=== PATIENT | male | born 1945 | race African-American/Black ===

== ENCOUNTER 2017-03-31 08:37 | Inpatient (IN) | payer OTHER ==
[~2017-03-31] VITALS: Ht 188 cm; Wt 75.7 kg
[~2017-03-31 08:37] MED LIST: ACET-2902 PO; CARB200T6 PO; CEPH500 PO; DOXY150T PO; FLUP10 PO; INSLAN SQ; INSNOV SQ; IPRA4AER IH; IPRAHFA IH; OMEP20 PO; QUET25TA PO; TAMS0.4C32 PO; ZIPR60CA2 PO
[2017-03-31] MEDS ORDERED: ATOR10TA84 PO (08:49)
[2017-03-31] MEDS ORDERED: VITAD1000 PO (08:49)
[2017-03-31] MEDS ORDERED: CLOP75 PO (08:49)
[2017-03-31] MEDS ORDERED: ACETAMINOPHEN 1000 MG/ISO-OSM 100 ML IV ONE (09:00)
[2017-03-31] MEDS ORDERED: SODIUM CHLORIDE 0.9% 1,000 ML IV ONE ×3 (09:00→10:30)
[2017-03-31 09:07] LABS: ABG A-A DIFF O2 604.9 mmHg (10-20.0); ABG BASE EXCESS -6.6 mmol/L (-2.0-3.0); ABG HCO3 20.2 mmol/L (22.0-26.0); ABG OXYHEMOGLOBIN 93.1 % (94.0-100.0); ABG PCO2 28 mmHg (35-45); ABG PH 7.423 (7.35-7.450); TEMPERATURE, FAHRENHEIT, BG 98.6 FAHREN (96.0-98.6)
[2017-03-31 09:08] LABS: ALLEN TEST, BLOOD GAS Positive
[2017-03-31 09:17] LABS: BASOPHILS % (AUTO) 0.2 % (0.0-2.0); EOSINOPHILS % (AUTO) 0 % (1.0-6.0); HEMATOCRIT 38.6 % (41-53); HEMOGLOBIN 12.6 g/dL (13.5-17.5); LYMPHOCYTES # (AUTO) 0.6 K/uL (1.0-4.8); LYMPHOCYTES % (AUTO) 4.2 % (22.0-44.0); MEAN CORPUSCULAR HEMOGLOBIN 25.6 pg (26.0-34.0); MEAN CORPUSCULAR HGB CONC 32.6 G/dL (31.0-37.0); MEAN CORPUSCULAR VOLUME 79 fL (80-100); MONOCYTES # (AUTO) 0.5 K/uL (0.1-1.0); MONOCYTES % (AUTO) 3.2 % (2.0-9.0); PLATELET COUNT (AUTO) 296 K/uL (150-450); RED BLOOD CELL COUNT(AUTO) 4.91 MIL/uL (4.50-5.90); RED CELL DISTRIBUTION WIDTH 16.2 % (11.5-14.5)
[2017-03-31 09:18] LABS: NEUTROPHILS % (AUTO) 92.4 % (40.0-70.0); WHITE BLOOD COUNT (AUTO) 22.8 K/uL (4.5-11.0)
[2017-03-31 09:19] LABS: APPEARANCE,URINE CLOUDY (CLEAR); GLUCOSE, URINE (UA) NEGATIVE (NEGATIVE); KETONES,URINE TRACE mg/dL (NEGATIVE); LEUKOCYTE ESTERASE ,URINE LARGE (NEGATIVE); OCCULT BLOOD,URINE LARGE (NEGATIVE); PH,URINE 6.5 (5.0-8.0); PROTEIN,URINE SEE CONFIRM (NEGATIVE)
[2017-03-31 09:24] LABS: ADD UA MICROSCOPIC YES
[2017-03-31 09:26] LABS: SULFOSALICYLIC ACID,URINE 3+ (Negative)
[2017-03-31 09:27] LABS: WBC,URINE 26-50 /HPF (0-5)
[2017-03-31] MEDS ORDERED: VANCOMYCIN HCL 1 GM/D5% WATER 200 ML IV ONE (09:30)
[2017-03-31] MEDS ORDERED: PIPERACILLIN/TAZO 3.375 GM/D5W 50 ML IV ONE (09:30)
[2017-03-31] MEDS ORDERED: LEVOFLOXACIN 500 MG/D5% WATER 100 ML IV ONE (09:30)
[2017-03-31 09:40] LABS: CALCIUM, TOTAL 9.5 mg/dL (8.8-10.5); CREATININE 2.1 mg/dL (0.60-1.30); POTASSIUM 4.3 mmol/L (3.5-5.1)
[2017-03-31 09:47] LABS: ALBUMIN 2.4 g/dL (3.4-5.0); BILIRUBIN,TOTAL 0.8 mg/dL (0.1-1.0); RBC MORPHOLOGY COMMENT NORMAL RBC MORPH; TOTAL PROTEIN, SERUM 8.2 g/dL (6.4-8.2)
[2017-03-31 10:17] LABS: PROCALCITONIN (PCT) 9.28 ng/mL (<0.50)
[2017-03-31 10:25] LABS: LACTIC ACID 2.5 mmol/L (0.4-2.0)
[2017-03-31] MEDS ORDERED: IODIXANOL 320 MG/ML 150 ML VIAL ONE (10:25)
[2017-03-31] MEDS ORDERED: SODIUM CHLORIDE 0.9% 100 ML ONE (10:25)
[2017-03-31] MEDS ORDERED: ONDANSETRON HCL 4 MG/2 ML VIAL IVP PRN (10:30)
[2017-03-31] MEDS ORDERED: IPRATROPIUM BROMIDE 0.5 MG/2.5 ML NEB SOLUTION NEB PRN ×2 (11:45→12:00)
[2017-03-31] MEDS ORDERED: MAGNESIUM HYDROXIDE SUSPENSION 30 ML UDCUP PO PRN (11:45)
[2017-03-31] MEDS ORDERED: BISACODYL 10 MG RECTAL RECTAL SUPPOSITORY PR PRN (11:45)
[2017-03-31] MEDS ORDERED: ALBUTEROL SULFATE 2.5 MG/0.5 ML NEB SOLUTION NEB PRN ×2 (11:45→12:00)
[2017-03-31 11:47] LABS: REFLEX LACTIC ACID? YES YES
[2017-03-31] MEDS ORDERED: *CLINICAL-LEVOFLOXACIN IVPB DOSING CLINICAL ONE ×2 (12:00)
[2017-03-31] MEDS ORDERED: SODIUM CHLORIDE 0.9% 1,000 ML IV SCH (12:00)
[2017-03-31] MEDS ORDERED: DEXTROSE 50%-WATER 25 GM/50 ML SYRINGE IVP PRN (12:00)
[2017-03-31] MEDS ORDERED: PENTETATE DTPA TC99M/MCL ISOTOPE 1 EA INJ INJ ONE (12:35)
[2017-03-31] MEDS ORDERED: MAA ALBUMIN AGGREGATED TC99M/UD<10MCL ISOTOPE 1 EA INJ INJ ONE (12:50)
[2017-03-31] MEDS ORDERED: LEVOFLOXACIN 250 MG/D5% WATER 50 ML IV ONE (13:00)
[2017-03-31 13:30] VITALS: BP 104/55
[2017-03-31] MEDS: SODIUM CHLORIDE 0.45% 1,000 ML IV SCH ×2 (14:00→21:53)
[2017-03-31 16:00] VITALS: BP 107/57
[2017-03-31] MEDS ORDERED: HEPARIN SODIUM,PORCINE 5,000 UNITS/ML VIAL SQ SCH (16:00)
[2017-03-31] MEDS: INSULIN ASPART 100 UNITS/ML SQ PRN ×2 (17:48→23:11)
[2017-03-31 20:00] VITALS: BP 117/62
[2017-03-31] MEDS: DOCUSATE SODIUM 100 MG CAPSULE PO SCH (21:00)
[2017-03-31] MEDS: ATORVASTATIN CALCIUM 20 MG TABLET PO SCH (21:50)
[2017-03-31] MEDS: HEPARIN SODIUM,PORCINE 5,000 UNITS/ML VIAL SQ SCH (21:50)
[2017-04-01] VITALS: BP 126/67
[2017-04-01 04:00] VITALS: BP 114/68
[2017-04-01 05:02] LABS: GLUCOSE COMMENT 1 Received Meds; GLUCOSE,POINT OF CARE 300 MG/DL (70-110)
[2017-04-01 05:06] LABS: GLUCOSE COMMENT 1 Received Meds; GLUCOSE,POINT OF CARE 253 MG/DL (70-110)
[2017-04-01] MEDS: INSULIN ASPART 100 UNITS/ML SQ PRN ×3 (05:15→20:01)
[2017-04-01 05:18] LABS: ANION GAP 14 mmol/L (8-16); CALCIUM, TOTAL 9.4 mg/dL (8.8-10.5); CARBON DIOXIDE 24 mmol/L (22-29); CHLORIDE 122 mmol/L (98-107); CREATININE 1.05 mg/dL (0.60-1.30); GLOMERULAR FILTR. RATE CALC > 60 mL/min (>60); SODIUM SERUM 160 mmol/L (136-145); UREA NITROGEN, BLOOD 51 mg/dL (7-18)
[2017-04-01 05:21] LABS: POTASSIUM 2.9 mmol/L (3.5-5.1)
[2017-04-01] MEDS ORDERED: SODIUM CHLORIDE 0.9% 250 ML IV ONE (05:47)
[2017-04-01 05:50] LABS: EOSINOPHILS % (AUTO) 0 % (1.0-6.0); HEMATOCRIT 35.3 % (41-53); HEMOGLOBIN 11.4 g/dL (13.5-17.5); LYMPHOCYTES % (AUTO) 6.6 % (22.0-44.0); MEAN CORPUSCULAR HEMOGLOBIN 25.6 pg (26.0-34.0); MEAN CORPUSCULAR HGB CONC 32.3 G/dL (31.0-37.0); MEAN CORPUSCULAR VOLUME 79 fL (80-100); MONOCYTES # (AUTO) 0.3 K/uL (0.1-1.0); MONOCYTES % (AUTO) 1.9 % (2.0-9.0); NEUTROPHILS # (AUTO) 13.9 K/uL (1.8-7.7); PLATELET COUNT (AUTO) 248 K/uL (150-450); RED BLOOD CELL COUNT(AUTO) 4.44 MIL/uL (4.50-5.90); RED CELL DISTRIBUTION WIDTH 16.1 % (11.5-14.5); WHITE BLOOD COUNT (AUTO) 15.2 K/uL (4.5-11.0)
[2017-04-01] MEDS ORDERED: POTASSIUM CHL 10 MEQ/WATER 200 ML IV ONE (05:56)
[2017-04-01] MEDS: POTASSIUM CHL 10 MEQ/WATER 50 ML IV SCH ×4 (05:56→10:16)
[2017-04-01 06:34] LABS: NEUTROPHILS % (AUTO) 91.5 % (40.0-70.0)
[2017-04-01] MEDS: DOCUSATE SODIUM 100 MG CAPSULE PO SCH ×2 (07:38→19:52)
[2017-04-01] MEDS: HEPARIN SODIUM,PORCINE 5,000 UNITS/ML VIAL SQ SCH ×2 (07:56→20:00)
[2017-04-01] MEDS: PANTOPRAZOLE SODIUM 40 MG/VIAL IVP SCH (07:56)
[2017-04-01] MEDS: CLOPIDOGREL BISULFATE 75 MG TABLET PO SCH (07:57)
[2017-04-01] MEDS: ACETAMINOPHEN 325 MG TABLET PO PRN ×2 (07:57→18:03)
[2017-04-01] MEDS: SODIUM CHLORIDE 0.45% 1,000 ML IV SCH (07:58)
[2017-04-01 08:00] VITALS: BP 119/54
[2017-04-01] MEDS ORDERED: VANCOMYCIN HCL 1 GM/D5% WATER 200 ML IV SCH (08:00)
[2017-04-01] MEDS ORDERED: ALBUTEROL SULFATE 2.5 MG/0.5 ML NEB SOLUTION NEB PRN (08:45)
[2017-04-01 10:41] LABS: ABG HCO3 21.9 mmol/L (22.0-26.0); ABG OXYHEMOGLOBIN 91.7 % (94.0-100.0); ABG PCO2 29 mmHg (35-45); ABG PH 7.451 (7.35-7.450); ALLEN TEST, BLOOD GAS Positive; TEMPERATURE, FAHRENHEIT, BG 99.7 FAHREN (96.0-98.6)
[2017-04-01 12:00] VITALS: BP 109/60
[2017-04-01] MEDS ORDERED: POTASSIUM CHLORIDE 20 MEQ ER TABLET PO PRN (12:15)
[2017-04-01] MEDS ORDERED: HALOPERIDOL LACTATE 5 MG/ML VIAL ONE (12:32)
[2017-04-01] MEDS: LEVOFLOXACIN 750 MG/D5% WATER 150 ML IV SCH (12:33)
[2017-04-01] MEDS: DEXTROSE 5%-WATER 1,000 ML IV SCH (12:35)
[2017-04-01] MEDS: HALOPERIDOL LACTATE 5 MG/ML VIAL IVP PRN ×2 (12:46→19:53)
[2017-04-01 13:27] LABS: GLUCOSE,POINT OF CARE 205 MG/DL (70-110)
[2017-04-01] MEDS: POTASSIUM CHL 10 MEQ/WATER 50 ML IV PRN ×3 (14:42→16:44)
[2017-04-01 16:00] VITALS: BP 123/67
[2017-04-01] MEDS ORDERED: LORazepam 2 MG/ML VIAL ONE (16:08)
[2017-04-01] MEDS: LORazepam 2 MG/ML VIAL IVP PRN ×2 (16:34→19:53)
[2017-04-01] MEDS: VANCOMYCIN HCL 750 MG in DEXTROSE 5%-WATER 150 ML IV SCH (19:52)
[2017-04-01 20:00] VITALS: BP 101/54
[2017-04-01] MEDS: ATORVASTATIN CALCIUM 20 MG TABLET PO SCH (20:00)
[2017-04-02] VITALS: BP 105/61
[2017-04-02] MEDS ORDERED: SODIUM CHLORIDE 0.9% 250 ML IV ONE (00:22)
[2017-04-02] MEDS: DEXTROSE 5%-WATER 1,000 ML IV SCH ×2 (01:00→13:58)
[2017-04-02] MEDS: LORazepam 2 MG/ML VIAL IVP PRN ×2 (01:00→06:26)
[2017-04-02] MEDS: HALOPERIDOL LACTATE 5 MG/ML VIAL IVP PRN (02:32)
[2017-04-02 04:00] VITALS: BP 114/51
[2017-04-02 05:05] LABS: BASOPHILS % (AUTO) 0.1 % (0.0-2.0); EOSINOPHILS % (AUTO) 0 % (1.0-6.0); HEMATOCRIT 32.5 % (41-53); HEMOGLOBIN 10.5 g/dL (13.5-17.5); LYMPHOCYTES # (AUTO) 0.8 K/uL (1.0-4.8); LYMPHOCYTES % (AUTO) 5.6 % (22.0-44.0); MEAN CORPUSCULAR HEMOGLOBIN 25.3 pg (26.0-34.0); MEAN CORPUSCULAR HGB CONC 32.3 G/dL (31.0-37.0); MEAN CORPUSCULAR VOLUME 78 fL (80-100); MONOCYTES # (AUTO) 0.5 K/uL (0.1-1.0); MONOCYTES % (AUTO) 3.1 % (2.0-9.0); NEUTROPHILS # (AUTO) 13.6 K/uL (1.8-7.7); PLATELET COUNT (AUTO) 221 K/uL (150-450); RED BLOOD CELL COUNT(AUTO) 4.15 MIL/uL (4.50-5.90); WHITE BLOOD COUNT (AUTO) 14.9 K/uL (4.5-11.0)
[2017-04-02 05:06] LABS: NEUTROPHILS % (AUTO) 91.2 % (40.0-70.0)
[2017-04-02] MEDS: INSULIN ASPART 100 UNITS/ML SQ PRN ×2 (05:16→17:49)
[2017-04-02 05:24] LABS: ANION GAP 11 mmol/L (8-16); CARBON DIOXIDE 24 mmol/L (22-29); CHLORIDE 124 mmol/L (98-107); GLOMERULAR FILTR. RATE CALC > 60 mL/min (>60); POTASSIUM 4.2 mmol/L (3.5-5.1); SODIUM SERUM 159 mmol/L (136-145); UREA NITROGEN, BLOOD 23 mg/dL (7-18)
[2017-04-02] MEDS: DOCUSATE SODIUM 100 MG CAPSULE PO SCH (07:57)
[2017-04-02] MEDS: CLOPIDOGREL BISULFATE 75 MG TABLET PO SCH (07:59)
[2017-04-02 08:00] VITALS: BP 116/71
[2017-04-02 08:30] LABS: RBC MORPHOLOGY COMMENT NORMAL RBC MORPH
[2017-04-02] MEDS: VANCOMYCIN HCL 750 MG in DEXTROSE 5%-WATER 150 ML IV SCH (08:30)
[2017-04-02] MEDS: HEPARIN SODIUM,PORCINE 5,000 UNITS/ML VIAL SQ SCH (08:31)
[2017-04-02] MEDS: PANTOPRAZOLE SODIUM 40 MG/VIAL IVP SCH (08:31)
[2017-04-02] MEDS ORDERED: LEVOFLOXACIN 750 MG/D5% WATER 150 ML IV SCH (09:00)
[2017-04-02 11:39] VITALS: BP 123/68
[2017-04-02] MEDS: LEVOFLOXACIN 750 MG/D5% WATER 150 ML IV SCH (11:52)
[2017-04-02 12:02] LABS: GLUCOSE,POINT OF CARE 351 MG/DL (70-110)
[2017-04-02] MEDS ORDERED: OXYGEN THERAPY IH SCH (14:00)
[2017-04-02 15:35] VITALS: BP 116/60
[2017-04-02] MEDS ORDERED: VANCOMYCIN HCL 750 MG in DEXTROSE 5%-WATER 150 ML IV SCH (16:00)
[2017-04-05 10:33] LABS: GLUCOSE COMMENT 1 Received Meds; GLUCOSE,POINT OF CARE 181 MG/DL (70-110)
[2017-04-05 10:33] LABS: GLUCOSE COMMENT 1 Received Meds; GLUCOSE,POINT OF CARE 260 MG/DL (70-110)
[2017-04-05 10:33] LABS: GLUCOSE,POINT OF CARE 153 MG/DL (70-110)
[2017-04-05 19:52] LABS: GLUCOSE COMMENT 1 Received Meds; GLUCOSE,POINT OF CARE 270 MG/DL (70-110)
[2017-04-05 19:53] LABS: GLUCOSE COMMENT 1 Received Meds; GLUCOSE,POINT OF CARE 245 MG/DL (70-110)
== END 2017-04-02 19:05 | disposition short-term general hospital (02) | DRG 871 ==
LOC: EMS 08:40 → ICU 10:06 → 5N 04-02 11:20
PROVIDERS: ADMIT Internal Medicine; ATTEND Internal Medicine
DX: A41.51 Sepsis due to Escherichia coli [E. coli] (principal); J96.91 Respiratory failure, unspecified with hypoxia; J69.0 Pneumonitis due to inhalation of food and vomit; E43 Unspecified severe protein-calorie malnutrition; G93.40 Encephalopathy, unspecified; N17.9 Acute kidney failure, unspecified; N39.0 Urinary tract infection, site not specified; E87.0 Hyperosmolality and hypernatremia; E87.4 Mixed disorder of acid-base balance; K21.9 Gastro-esophageal reflux disease without esophagitis; J44.9 Chronic obstructive pulmonary disease, unspecified; I10 Essential (primary) hypertension; F20.9 Schizophrenia, unspecified; E78.5 Hyperlipidemia, unspecified; E78.00 Pure hypercholesterolemia, unspecified; E11.65 Type 2 diabetes mellitus with hyperglycemia; R13.10 Dysphagia, unspecified; Z86.73 Personal history of transient ischemic attack (TIA), and cerebral infarction without residual deficits; Z88.8 Allergy status to other drugs, medicaments and biological substances; Z83.3 Family history of diabetes mellitus; Z82.49 Family history of ischemic heart disease and other diseases of the circulatory system; Z79.4 Long term (current) use of insulin; Z22.322 Carrier or suspected carrier of Methicillin resistant Staphylococcus aureus; B96.1 Klebsiella pneumoniae [K. pneumoniae] as the cause of diseases classified elsewhere
CPT/HCPCS: 51702; 71250; 78582; 82805; 82962; 83605; 84132; 84145; 87040; 87081; 87086; 87324; 87449; 92526; 92610; 93005; 94640; 94660; 96365; 96375; 99291; 99292; A9539; A9540; C9113; J0131; J1630; J1644; J1956; J2060; J2543; J3370; J3480; J7030; J7050; J7060; Q9967